=== PATIENT | male | born 1975 | race Caucasian/White ===

== ENCOUNTER 2023-01-10 13:59 | Emergency (ER) | payer MEDICARE, MEDICAID ==
[2023-01-10 14:30] VITALS: BP 115/62; PULSE 62
[2023-01-10 14:56] LABS: ANION GAP 10.1 mmol/L (5-15)
== END 2023-01-10 15:29 | disposition home or self-care (01) ==
LOC: VM.ED 13:59 → SUPCPDRO 13:59 → VM.ED 15:29
DX: R55 Syncope and collapse (principal); E78.00 Pure hypercholesterolemia, unspecified; Z79.899 Other long term (current) drug therapy
CPT/HCPCS: 36415; 70450; 80053; 83735; 84100; 84484; 85025; 93005; 93010; 99284; 99285

== ENCOUNTER 2025-10-04 16:36 | Emergency (ER) | payer MEDICARE, MEDICAID ==
[2025-10-04 17:06] VITALS: BP 113/62; PULSE 79
[2025-10-04 17:06] LABS: PLATELET COUNT,PLT 299 x10^3/uL (130-400); RED BLOOD CELL COUNT 4.25 x10^6/uL (4.5-6.0)
[2025-10-04 17:08] LABS: WHITE BLOOD CELL COUNT,WBC 26.2 x10^3/uL (4.0-10.0)
[2025-10-04 17:23] LABS: A/G RATIO 0.60; ALANINE AMINOTRANSFERASE,ALT 17 U/L (16-63); ASPARTATE AMNIOTRANSFERASE,AST 21 U/L (15-37); BILIRUBIN TOTAL 0.6 mg/dL (0.2-1.0); BLOOD UREA NITROGEN,BUN 18 mg/dL (7-18); CARBON DIOXIDE,CO2 27 mmol/L (21-32); CHLORIDE,CL 97 mmol/L (98-107); CREATININE 1.2 mg/dL (0.70-1.30); GLUCOSE RANDOM 158 mg/dL (70-99); POTASSIUM,K 4.2 mmol/L (3.5-5.1); PROTEIN TOTAL,TP 7.7 g/dL (6.4-8.2); SODIUM,NA 134 mmol/L (136-145)
[2025-10-04 17:24] LABS: ESTIMATED GFR 73 mL/min (>=60)
[2025-10-04 17:28] LABS: BAND PERCENT MAN 2 % (0-6); LYMPHOCYTES ABSOLUTE MAN 1.3 x10^3/uL (1.0-4.8); LYMPHOCYTES PERCENT MAN 5 % (25-50); MONOCYTES ABSOLUTE MAN 2.4 x10^3/uL (0.0-0.8); MONOCYTES PERCENT MAN 9 % (2-11); NEUTROPHILS ABSOLUTE MAN 22.5 x10^3/uL (1.8-7.7); PLATELET COUNT ESTIMATE ADEQUATE; SEG NEUTROPHILS PERCENT MAN 84 % (50-80)
[2025-10-04] MEDS: Iopamidol 612 MG/ML 100 ML Bottle IVPUSH ONE (18:05)
[2025-10-04 18:49] LABS: APPEARANCE,URINE SLIGHTLY CLOUDY (CLEAR); GLUCOSE,URINE NEGATIVE (NEGATIVE); OCCULT BLOOD,URINE MODERATE (NEGATIVE)
[2025-10-04 18:57] LABS: SQUAMOUS EPITHELIAL CELLS,UR RARE /HPF (NOT SEEN)
== END 2025-10-04 19:21 | disposition home or self-care (01) ==
LOC: VM.ED 16:36
DX: J18.9 Pneumonia, unspecified organism (principal); E78.00 Pure hypercholesterolemia, unspecified; Z79.899 Other long term (current) drug therapy
CPT/HCPCS: 36415; 71045; 74177; 80053; 81001; 83605; 85025; 87040; 87086; 87088; 87186; 96374; 99284; 99284-25; J0696; Q9967